=== PATIENT | male | born 1955 ===

== ENCOUNTER 2023-12-06 06:06 | Day surgery (SDC) | payer OTHER, SELFPAY ==
[2023-11-27 09:12] VITALS: BMI 29.1
[2023-12-06] VITALS (12 sets, daily range): BP systolic 40–153; BP diastolic 72–95; BMI 29.1
[2023-12-06] MEDS: TYLENOL 1000 MG PO (07:08)
[2023-12-06] MEDS: NORMOSOL-R/PLASMALYTE-A 1000 IV (07:16)
--- NOTE | 2023-12-06 07:21 | W.SUR.PREOP ---
Pre-Operative Surgical Note
-
I have examined this patient prior to the performance of the scheduled procedure.
The patient's condition is unchanged from the time of the current History and
Physical and the patient is able to undergo the scheduled procedure.
--- NOTE | 2023-12-06 09:13 | W.IMMPOSTOP ---
Surgical Immed Post Op Note
-
Primary Surgeon: Keshav Diallo MD
Assisting Surgeon: None
Pre-op Diagnosis: Right scrotal inguinal hernia
Post-op Diagnosis: Same
Procedure Performed: Robotic right scrotal inguinal hernia repair with mesh
Anesthesia Type: General
Specimen / Cultures: None
Estimated Blood Loss: 7 cc
Complications: None
Operative Findings: Very large right inguinal scrotal indirect inguinal hernia. No other ipsilateral or contralateral defects noted though the sigmoid colon was noted to be plastered over the indirect ring and there was a very small indentation on
the right side medially, unclear if this really represented a direct hernia versus a simple fold of his peritoneum as there was significant amount of preperitoneal fat in this area. As his peritoneum was quite thin we entered the retrorectus space
to ensure a thick flap on the right side. After reduction of the very large indirect inguinal hernia the space was reinforced with an extra-large Bard soft 3D max mid weight uncoated polypropylene mesh that was secured to Ashish's ligament and
superior laterally. The flap was closed with a running 2-0 Monocryl barbed suture and few rents were closed with interrupted 2-0 Vicryl's. An Angiocath was placed to help evacuate the space and showed good apposition of the peritoneal flap to the
mesh without any folds in the mesh.
[2023-12-06] MEDS: DILAUDID 0.5 MG IV (09:30)
--- NOTE | 2023-12-06 09:32 | OR.RPT ---
Operative Report
Operative Report
Patient Name: Lexx Frost
: 1955
Date of Operation: 12/06/2023
Preoperative Diagnosis: Right scrotal inguinal hernia
Postoperative Diagnosis: Same
Procedure(s):
Robotic right scrotal inguinal hernia repair with mesh (CATE approach)
Surgeon(s):
Dr. Diallo
Jr. Systems Administrator(s):
RUBÉN Madrid
Anesthesia: General
Estimated Blood Loss: [ 7] cc
Urine Output: None
Drains/Lines/Implants: XLarge 3D Max Bard mid weight mesh
Specimens: None
Indication for surgery: The patient has a history of groin pain and noted on exam to have a large right inguinal scrotal hernia. Following review of therapeutic options they have elected to undergo a minimally invasive repair.
Operative Findings: Very large right inguinal scrotal indirect inguinal hernia. No other ipsilateral or contralateral defects noted though the sigmoid colon was noted to be plastered over the indirect ring and there was a very small indentation on
the right side medially, unclear if this really represented a direct hernia versus a simple fold of his peritoneum as there was significant amount of preperitoneal fat in this area. As his peritoneum was quite thin we entered the retrorectus space
to ensure a thick flap on the right side. After reduction of the very large indirect inguinal hernia the space was reinforced with an extra-large Bard soft 3D max mid weight uncoated polypropylene mesh that was secured to Ashish's ligament and
superior laterally. The flap was closed with a running 2-0 Monocryl barbed suture and few rents were closed with interrupted 2-0 Vicryl's. An Angiocath was placed to help evacuate the space and showed good apposition of the peritoneal flap to the
mesh without any folds in the mesh.
Details of the operation:
The patient was brought to the Operating Room and placed in the supine position with the arms tucked. IV antibiotics were infused and Venodyne stockings placed. Following uneventful induction of general endotracheal anesthesia, an orogastric tube
were placed. The abdomen was prepped and draped in the usual sterile fashion. The abdomen was entered using a Veress technique which required [1] pass, pneumoperitoneum to 15 mmHg was obtained without difficulty. An 8mm trochar was passed through
the abdominal wall roughly 20 cm cephalad to the inguinal canal. We then confirmed that no inadvertent injury was made while passing the trocar or Veress needle. We then placed two additional 8 mm ports in the left upper and right upper quadrants.
We then docked the robot with a Prograsper in the left hand port and monopolar scissors in the right. No true defect was noted on the left, the sigmoid colon was plastered over the indirect space and there was a small indentation over the direct
space of fat however was unclear if this was just a fold in the peritoneum as the patient had a significant amount of preperitoneal fat in this area. On the right side the patient had an obvious large indirect inguinal hernia containing small bowel
that we were able to easily reduce with simple external pressure. We then began by creating a flap at the level of the ASIS laterally working our way medially to the medial umbilical fold. Staying onto the peritoneum we were able to
circumferentially dissect around the hernia sac and and peel it off of the underlying [spermatic cord and testicular vessels, taking care to preserve them]. Medially we identified the midline pubis as well as Ashish's ligament and ensured to
dissect 2 cm below the pubic rim over the bladder. After exposure of the entire myopectineal orifice we identified and reduced: [A very large indirect inguinal hernia, no direct inguinal hernia, no femoral hernia, no cord lipoma]
We then fixated an Extra large 3D max mesh with a 2-0 Vicryl stitch at coopers medially and superior laterally. The flap was then closed with a running 2-0 barbed monocryl suture ensuring that the tail was cut flush with the medial fat pad so that
no barbs were exposed. During the closure of the flap an Angiocath was inserted and 20 cc of quarter percent Marcaine was instilled. The area in the flap cavity was then evacuated of air confirming that the mesh was flush and there were no folds.
[2 small rents in the peritoneum were noted and closed with 2-0 Vicryl]. All needles and instruments were then removed and the robot was undocked. The abdomen was then desufflated, and pneumoperitoneum evacuated. All skin sites were then closed
with 4-0 Monocryl followed by Dermabond. Counts were correct and overall, the patient tolerated the procedure well and was taken to the Recovery Room postoperatively in stable condition.
I was the attending physician and performed the procedure with assistance of the PA above. I was present for all portions of the case, excluding wound closure. The assistance of RUBÉN Madrid was required due to the complexity of the procedure.
During the procedure Rossy assisted with retraction, passing instruments and mesh, and closure of the wound.
Keshav Diallo MD
== END 2023-12-06 11:44 | disposition home or self-care (01) ==
LOC: SDS 06:06
PROVIDERS: ATTENDING PHYSICIAN Surgery; FAMILY PHYSICIAN Internal Medicine
DX: K40.90 Unilateral inguinal hernia, without obstruction or gangrene, not specified as recurrent (principal)
CPT/HCPCS: 49650; 36415; 93005; C1781